=== PATIENT | female | born 1980 | race Native Hawaiian/Other Pacific Islander ===

== ENCOUNTER 2016-09-27 12:54 | Outpatient (CLI) | payer OTHER ==
[~2016-09-27 12:54] MED LIST: ARIP15TA2 PO; BALZIVA PO; BENZ1TAB43 PO; LEVO0.0723 PO; LITHIUM CARB300 M2 PO; RANITIDINE 150150 MG PO; SERT100T PO; TRAM50TA PO
== END 2016-09-27 14:00 | disposition home or self-care (01) ==
LOC: MAMMO 12:54
DX: Z12.31 Encounter for screening mammogram for malignant neoplasm of breast (principal); Z80.3 Family history of malignant neoplasm of breast
CPT/HCPCS: G0202-TC

== ENCOUNTER 2016-10-10 14:34 | Outpatient (CLI) | payer OTHER | END 2016-10-10 19:34 | disposition home or self-care (01) | LOC: MAMMO 14:34 | DX: R92.8 Other abnormal and inconclusive findings on diagnostic imaging of breast (principal) | CPT/HCPCS: G0206-TC ==

== ENCOUNTER 2017-02-24 09:17 | Emergency (ER) | payer OTHER ==
[~2017-02-24] VITALS: Ht 180.3 cm; Wt 117.5 kg
[2017-02-24 09:15] VITALS: BP 157/69; TEMP 98.6
== END 2017-02-24 09:50 | disposition home or self-care (01) ==
LOC: ED 09:17
DX: R44.2 Other hallucinations (principal); F41.8 Other specified anxiety disorders
CPT/HCPCS: 99281; J2060

== ENCOUNTER 2017-02-24 13:14 | Outpatient (CLI) | payer OTHER | END 2017-02-24 13:32 | disposition short-term general hospital (02) | LOC: AMB 13:14 | DX: F28 Other psychotic disorder not due to a substance or known physiological condition (principal) | CPT/HCPCS: A0425; A0429 ==

== ENCOUNTER 2017-02-24 13:34 | Emergency (ER) | payer OTHER ==
[~2017-02-24] VITALS: Ht 180.3 cm; Wt 117.5 kg
[2017-02-24 13:45] VITALS: BP 149/117; TEMP 99
== END 2017-02-24 15:42 | disposition home or self-care (01) ==
LOC: ED 13:34
DX: R44.2 Other hallucinations (principal); R41.0 Disorientation, unspecified
CPT/HCPCS: 99281

== ENCOUNTER 2017-08-02 11:26 | Emergency (ER) | payer OTHER ==
[~2017-08-02] VITALS: Ht 180.3 cm; Wt 120.2 kg
[2017-08-02] MEDS ORDERED: SW OMEPRAZOLE20 MG OR (11:42)
[2017-08-02] MEDS ORDERED: DIPH25CA90 PO (11:42)
[2017-08-02] MEDS ORDERED: MELATONIN1 TA2 OR (11:43)
[2017-08-02 12:58] LABS: PLATELET COUNT 184 K/uL (152-353)
[2017-08-02 13:03] LABS: POTASSIUM 3.8 mmol/L (3.6-5.2)
[2017-08-02 20:22] VITALS: BP 168/92; TEMP 98.8
== END 2017-08-02 20:23 | disposition home or self-care (01) ==
LOC: ED 11:26
PROVIDERS: Family Medicine
DX: F23 Brief psychotic disorder (principal); F31.89 Other bipolar disorder; E03.8 Other specified hypothyroidism; R00.0 Tachycardia, unspecified
CPT/HCPCS: 80053; 80307; 80320; 80329; 81000; 81025; 85027; 93005; 99285; J2060; J3486

== ENCOUNTER 2017-08-24 10:50 | Emergency (ER) | payer OTHER ==
[~2017-08-24] VITALS: Ht 180.3 cm; Wt 113.4 kg
[2017-08-24 10:50] VITALS: BP 148/82; TEMP 97.5
[~2017-08-24 10:50] MED LIST changes: +DIPH25CA90 PO; +MELATONIN1 TA2 OR; +SW OMEPRAZOLE20 MG OR
[2017-08-24 13:08] LABS: POTASSIUM 4.6 mmol/L (3.6-5.2)
[2017-08-24 13:09] LABS: PLATELET COUNT 160 K/uL (152-353)
== END 2017-08-26 15:00 | disposition other institution (70) ==
LOC: ED 10:50
DX: F28 Other psychotic disorder not due to a substance or known physiological condition (principal); R41.0 Disorientation, unspecified
CPT/HCPCS: 36415; 80053; 80307; 80320; 80329; 81000; 84703; 85027; 96372; 99284; J1200; J2060; J3486

== ENCOUNTER 2017-09-27 01:11 | Emergency (ER) | payer OTHER ==
[~2017-09-27] VITALS: Ht 180.3 cm; Wt 123.4 kg
[2017-09-27 01:44] LABS: PLATELET COUNT 117 K/uL (152-353)
[2017-09-27 01:47] LABS: POTASSIUM 4.1 mmol/L (3.6-5.2)
[2017-09-27 19:23] VITALS: BP 148/84; TEMP 99.4
== END 2017-09-27 19:24 | disposition home or self-care (01) ==
LOC: ED 01:11
DX: R45.1 Restlessness and agitation (principal); R45.851 Suicidal ideations; R00.0 Tachycardia, unspecified
CPT/HCPCS: 36415; 80053; 80307; 80320; 80329; 81000; 81025; 84443; 85027; 87086; 87088; 96372; 99285; J0515; J1200; J1630; J2060; J3486

== ENCOUNTER 2017-10-10 16:37 | Outpatient (CLI) | payer OTHER | END 2017-10-10 23:39 | disposition home or self-care (01) | LOC: RAD 16:37 | DX: M54.17 Radiculopathy, lumbosacral region (principal) ==

== ENCOUNTER 2018-01-13 14:21 | Outpatient (CLI) | payer OTHER | END 2018-01-13 21:44 | disposition home or self-care (01) | LOC: MRI 14:21 | DX: M54.16 Radiculopathy, lumbar region (principal) ==

== ENCOUNTER 2018-01-15 14:14 | Outpatient (CLI) | payer OTHER | END 2018-01-15 19:31 | disposition home or self-care (01) | LOC: MAMMO 14:14 | DX: Z12.31 Encounter for screening mammogram for malignant neoplasm of breast (principal) ==

== ENCOUNTER 2018-03-28 13:16 | Outpatient (CLI) | payer OTHER | END 2018-03-28 13:34 | disposition short-term general hospital (02) | LOC: AMB 13:16 | DX: F91.8 Other conduct disorders (principal) | CPT/HCPCS: A0425; A0426 ==

== ENCOUNTER 2018-03-28 13:34 | Emergency (ER) | payer OTHER ==
[~2018-03-28] VITALS: Ht 180.3 cm; Wt 139.3 kg
[2018-03-28 14:44] LABS: PLATELET COUNT 190 K/uL (152-353)
[2018-03-28 14:50] LABS: POTASSIUM 4.3 mmol/L (3.6-5.2)
[2018-03-28 15:45] VITALS: BP 138/94; TEMP 98.7
== END 2018-03-28 15:45 | disposition short-term general hospital (02) ==
LOC: ED 13:41
PROVIDERS: Family Medicine
DX: R45.851 Suicidal ideations (principal); I10 Essential (primary) hypertension
CPT/HCPCS: 36415; 80053; 80329; 85027; 99285

== ENCOUNTER 2018-04-12 14:42 | Emergency (ER) | payer OTHER ==
[~2018-04-12] VITALS: Ht 180.3 cm; Wt 139.3 kg
[2018-04-12 14:51] VITALS: TEMP 97.7
[2018-04-12 15:58] VITALS: BP 128/96
== END 2018-04-12 16:16 | disposition home or self-care (01) ==
LOC: ED 14:42
DX: J02.9 Acute pharyngitis, unspecified (principal)
CPT/HCPCS: 87651; 99283

== ENCOUNTER 2018-04-27 13:08 | Emergency (ER) | payer OTHER ==
[~2018-04-27] VITALS: Ht 180.3 cm; Wt 139.3 kg
[2018-04-27 13:49] LABS: PLATELET COUNT 194 K/uL (152-353)
[2018-04-27 13:54] LABS: POTASSIUM 4.4 mmol/L (3.6-5.2)
[2018-04-28 13:35] VITALS: BP 137/83; TEMP 97.8
== END 2018-04-28 13:35 | disposition other institution (70) ==
LOC: ED 13:08
PROVIDERS: Internal Medicine
DX: R45.851 Suicidal ideations (principal); R45.850 Homicidal ideations; E03.8 Other specified hypothyroidism; I10 Essential (primary) hypertension; K21.9 Gastro-esophageal reflux disease without esophagitis; R00.0 Tachycardia, unspecified; Z04.6 Encounter for general psychiatric examination, requested by authority
CPT/HCPCS: 36415; 80053; 80307; 80320; 80329; 81000; 85027; 93005; 99285

== ENCOUNTER 2019-12-16 01:01 | Emergency (ER) | payer OTHER ==
[~2019-12-16] VITALS: Ht 180.3 cm; Wt 132.0 kg
[2019-12-16 01:28] LABS: PLATELET COUNT 150 K/uL (152-353)
[2019-12-16 01:48] LABS: POTASSIUM 3.9 mmol/L (3.6-5.2); SODIUM 140 mmol/L (136-145)
[2019-12-16] MEDS ORDERED: GABA300C2 PO (10:24)
[2019-12-16] MEDS ORDERED: CORRECTOL100 MG PO (10:26)
[2019-12-16] MEDS ORDERED: DIVALPROEX500 M1 PO (10:27)
[2019-12-16] MEDS ORDERED: FURO20TA67 PO (10:28)
[2019-12-16] MEDS ORDERED: COZAAR25 MG PO (10:29)
[2019-12-16] MEDS ORDERED: PANTOPRAZOLE SO40 M1 PO (10:29)
[2019-12-16] MEDS ORDERED: TRAZ100T PO (10:31)
[2019-12-16] MEDS ORDERED: HYDROXYZ HCL50 MG PO (10:32)
[2019-12-16] MEDS ORDERED: DIPH50CA30 PO (10:36)
[2019-12-16] MEDS ORDERED: CARV3.12 PO (10:37)
[2019-12-16] MEDS ORDERED: ZIPR20CA PO (10:38)
[2019-12-16] MEDS ORDERED: EUTHYROX88 MCG PO (10:42)
[2019-12-16 14:37] VITALS: BP 160/92; TEMP 98.2
== END 2019-12-16 07:06 | disposition other institution (70) ==
LOC: ED 01:01
PROVIDERS: General Practice
DX: R45.851 Suicidal ideations (principal)
CPT/HCPCS: 36415; 80053; 80307; 80320; 80329; 81000; 83735; 84702; 85027; 93005; 99285; J2060

== ENCOUNTER 2020-03-18 13:17 | Emergency (ER) | payer OTHER ==
[~2020-03-18] VITALS: Ht 180.3 cm; Wt 117.5 kg
[~2020-03-18 13:17] MED LIST changes: +CARV3.12 PO; +CORRECTOL100 MG PO; +COZAAR25 MG PO; +DIPH50CA30 PO; +DIVALPROEX500 M1 PO; +EUTHYROX88 MCG PO; +FURO20TA67 PO; +GABA300C2 PO; +HYDROXYZ HCL50 MG PO; +PANTOPRAZOLE SO40 M1 PO; +TRAZ100T PO; +ZIPR20CA PO
[2020-03-18 13:37] VITALS: TEMP 98.5
[2020-03-18 15:02] LABS: POTASSIUM 3.7 mmol/L (3.6-5.2)
[2020-03-18 15:04] LABS: PLATELET COUNT 179 K/uL (152-353)
[2020-03-18 17:21] VITALS: BP 130/75
== END 2020-03-18 17:21 | disposition home or self-care (01) ==
LOC: ED 13:17
PROVIDERS: Family Medicine
DX: M62.838 Other muscle spasm (principal); F32.89 Other specified depressive episodes
CPT/HCPCS: 80053; 80307; 80320; 80329; 81000; 85027; 93005; 99283

== ENCOUNTER 2020-05-31 22:37 | Emergency (ER) | payer OTHER ==
[~2020-05-31] VITALS: Ht 180.3 cm; Wt 117.5 kg
[2020-05-31 23:58] VITALS: BP 160/90; TEMP 98.1
== END 2020-05-31 23:58 | disposition home or self-care (01) ==
LOC: ED 22:37
DX: R45.851 Suicidal ideations (principal)
CPT/HCPCS: 99285

== ENCOUNTER 2020-11-16 08:22 | Emergency (ER) | payer OTHER ==
[2020-11-27 09:38] LABS: PLATELET COUNT 171 K/uL (152-353)
[2020-11-27 09:40] LABS: POTASSIUM 4.1 mmol/L (3.6-5.2)
== END 2020-11-16 12:04 | disposition other institution (70) ==
LOC: ED 08:22
PROVIDERS: Family Medicine
DX: R45.86 Emotional lability (principal); F41.8 Other specified anxiety disorders; F31.89 Other bipolar disorder
CPT/HCPCS: 80048; 80320; 80329; 81000; 81025; 85027; 96372; 99285; J1200; J1631; J2060

== ENCOUNTER 2021-11-11 05:28 | Emergency (ER) | payer OTHER ==
[~2021-11-11] VITALS: Ht 180.3 cm; Wt 117.5 kg
[2021-11-11 05:58] LABS: PLATELET COUNT 156 K/uL (152-353)
[2021-11-11 06:04] LABS: POTASSIUM 3.7 mmol/L (3.6-5.2)
[2021-11-11 09:15] VITALS: BP 126/84; TEMP 98
== END 2021-11-11 20:55 ==
LOC: ED 05:28
PROVIDERS: Hospitalist
DX: F25.0 Schizoaffective disorder, bipolar type (principal); Z11.52 Encounter for screening for COVID-19
CPT/HCPCS: 36415; 80053; 80143; 80179; 80307; 80320; 81002; 81025; 85027; 87635; 93005; 96374; 96375; 96376; 99285; J1200; J2060; J3486; U0003

== ENCOUNTER 2022-01-26 12:05 | Emergency (ER) | payer OTHER ==
[~2022-01-26] VITALS: Ht 180.3 cm; Wt 117.5 kg
[2022-01-26 13:02] LABS: PLATELET COUNT 174 K/uL (152-353)
[2022-01-26 13:12] LABS: POTASSIUM 3.6 mmol/L (3.6-5.2)
[2022-02-02 14:00] VITALS: BP 126/78; TEMP 98
== END 2022-02-02 14:01 | disposition still patient (30) ==
LOC: ED 12:05
PROVIDERS: Emergency Medicine
DX: F20.89 Other schizophrenia (principal); Z11.52 Encounter for screening for COVID-19
CPT/HCPCS: 80053; 80143; 80179; 80307; 80320; 81002; 85027; 85379; 87635; 93005; 96372; 99285; J1200; J1630; J3360; J3486; U0003